=== PATIENT | female | born 2000 | race African-American/Black ===

== ENCOUNTER 2023-04-21 07:05 | Emergency (ER) | payer BC, OTHER, SELFPAY ==
[2023-04-21 07:06] VITALS: BP 123/83; PULSE 85; RESP 16; TEMP 35.8; O2SAT 100
--- NOTE | 2023-04-21 07:15 | RAD_ITS ---
INDICATION: DISLOCATION. Patient felt a pop when swimming, pain. EXAMINATION/TECHNIQUE: X-RAY - LEFT XR Shoulder Min 2 Views: AP and scapular Y views COMPARISON: None. FINDINGS: SOFT TISSUES: No significant soft tissue swelling. BONES/JOINTS: No acute fracture or subluxation. Normal alignment. Preservation of the joint space(s). No suspicious osseous lesion observed. RAD/Shoulder min 2 Views IMPRESSION: Negative left shoulder Electronically Signed: Suhas Mckeon MD at 7:43 EST ,
[2023-04-21] MEDS: fentaNYL 100 MCG/2 ML Ampul 50 MCG IV (07:33)
--- NOTE | 2023-04-21 07:43 | EX.ED.UPPERE ---
HPI History of Present Illness Chief Complaint: Upper Extremity Injury Narrative Narrative: Patient is a 23-year-old female with history of prior left shoulder dislocation presenting with sudden onset of left shoulder pain. Patient was at swim practice and was swimming the [employer] stroke when she accidentally collided with another swimmer. She had immediate left shoulder pain. Concern for dislocation. Has dislocated the past but is spontaneously reduced before. Is having pain in her shoulder. No associated numbness or tingling. No other complaints or concerns at this time. No other injuries reported. PFSH PFSH Allergy/AdvReac Type Severity Reaction Status Date / Time No Known Allergies Allergy Verified 04/21/23 07:11 Social History Smoking Status: Never smoker ROS ROS ED Constitutional Constitutional ED: Denies chills or fever(s) Cardiovascular Cardiovascular: Denies chest pain Respiratory/Chest Respiratory/Chest: Denies cough Gastrointestinal Gastrointestinal: Denies nausea or vomiting Musculoskeletal Musculoskeletal: Reports other Details: left shoulder pain Neurologic Neurologic: Denies paresthesias or weakness Hematologic/Lymphatic Hematologic/Lymphatic: Denies easy bleeding EXAM Physical Exam Const Vital Signs: 04/21/23 07:06 Temperature 96.4 F L Temperature Source Temporal Pulse Rate 85 Respiratory Rate 16 Blood Pressure 123/83 H Blood Pressure Mean 96 Pulse Ox 100 Oxygen Delivery Method Room Air Positive well nourished and well developed General Appearance ED: well developed and NAD HEENT Reports moist mucous membranes Neck full ROM Chest Wall inspection of chest normal and palpation of chest normal Resp normal respiratory effort and clear to auscultation bilaterally Back/Spine Cervical Spine: Negative for cervical spine tenderness Thoracic Spine / Upper Back: Negative for thoracic spinal tenderness Extremity Extremity Narrative: Decreased range of motion of the left shoulder secondary to pain. Tenderness to the anterior and posterior aspect of the left shoulder. No obvious deformity or deep sulcus consistent with a dislocation. No tenderness palpation over the clavicle or the AC joint. No tense palpation of the humerus, elbow or distal left upper extremity. Normal movements of the fingers with intrinsic and extrinsic movements. Neuro oriented x3, no focal motor deficits and no sensory deficits noted Sensorium / Orientation: alert Psych mental status grossly normal Skin Lesions: no lesions Rashes: no rashes MDM MDM MDM Narrative Medical decision making narrative: Patient evaluated for sudden onset of left shoulder pain. Differential includes shoulder dislocation, subluxation, dislocation that spontaneously reduced as well as rotator cuff injury. Lower suspicion for fracture given mechanism of injury and young age. Patient given dose of fentanyl obtain an x-ray for further evaluation. X-ray reviewed by myself is not consistent with a dislocation. Radiology agrees and is read as no acute process. On repeat evaluation patient is feeling better. Does have active range of motion of the shoulder. We placed in a sling. Counseled that she should wear the sling and avoid swimming until cleared by Ortho. Will give her referral to Ortho on-call. Is given dose of Toradol prior to discharge. Patient does not voice any concern for . Given return precautions. Discharged home in stable condition. Radiography Diagnostic Testing: Diagnostic Data Shoulder X-Ray 04/21/23 07:15 IMPRESSION: Negative left shoulder Electronically Signed: Suhas Mckeon MD at 7:43 EST , Discharge Plan Triage Chief Complaint: Upper Extremity Injury ED Provider: Dahlia Toribio Dx/Rx/DC Orders Clinical Impression: Unspecified injury of left shoulder and upper arm, initial encounter Instructions: ED Dislocation: Shoulder (Reduced), ED Sling Primary Care Provider: Care Physician,Dee Primary Referrals: Andreas Friend MD [Med Staff - Active Staff] - As soon as possible NOT,DEFINED [Non-Staff] - Activity Restrictions/Additional Instructions: Please alternate ibuprofen and Tylenol for pain. Use ice to your shoulder. Please follow-up with orthopedics for clearance to return to swimming. I suspect you likely did dislocate your shoulder and it reduced spontaneously before coming in however I cannot definitively rule out any other type of rotator cuff injury. Disposition Disposition: Home, Self Care Capacity [facility] Well[facility] Coordinator Reflex Medical hold order details:: IF a medical hold is selected below, a suggested order for a MEDICAL HOLD will reflex upon signing the document. Next of kin: [place] law dictates a PRIORITY LIST for identifying legal decision-maker/legal next of kin in the following order (LNOK): 1st: The patient?s legal guardian, if any 2nd: The patient's spouse (if status is questionable, consult Risk Management) 3rd: The patient?s adult child(mirna) (majority, if multiple children) 4th: The patient?s parents 5th: The patient?s adult siblings (majority, if multiple children siblings)
[2023-04-21] MEDS: Ketorolac 15 MG/ML Vial IV (08:11)
== END 2023-04-21 08:21 | disposition home or self-care (01) ==
PROVIDERS: Emergency Provider Emergency Medicine; Visit Provider Emergency Medicine
DX: S49.92XA Unspecified injury of left shoulder and upper arm, initial encounter (principal); W51.XXXA Accidental striking against or bumped into by another person, initial encounter; Y93.11 Activity, swimming; Y99.8 Other external cause status
CPT/HCPCS: 73030; 96374; 96375; 99283; A4216

== ENCOUNTER → 2023-05-10 | Outpatient (CLI) | payer BC, OTHER, SELFPAY ==
--- NOTE | 2023-05-10 10:15 | MRI_ITS ---
STUDY: MRI ARTHROGRAM OF THE LEFT SHOULDER REASON FOR EXAM: Female, 23 years old. Pain, dislocation. TECHNIQUE: 10 mL dilute Clariscan contrast was injected into the left glenohumeral joint. MRI was obtained in all 3 orthogonal planes. In addition, a fat-suppressed T1-weighted sequence was performed with the patient''s arm in the abduction external rotation (ABER) position. COMPARISON: Left shoulder radiographs dated 04/21/2023. FINDINGS: Normal supraspinatus tendon. Normal infraspinatus tendon. Normal subscapularis tendon. Normal teres minor tendon. Normal supraspinatus muscle. Normal infraspinatus muscle. Normal subscapularis muscle. Normal teres minor muscle. Normal glenohumeral articulation. There is a subtle Hill-Sachs deformity of the posterior superior humeral head, with underlying focal subcortical marrow edema (sagittal T2 series 4 image 14; coronal T2 series 5 image 5). Normal biceps labral complex. Normal intracapsular long biceps tendon. Normal labrum. Normal capsulo-ligamentous complex. Normal rotator interval. Normal acromioclavicular articulation. There is a Type II morphology (curved), with a neutral orientation. There is no subacromial-subdeltoid bursal fluid. Normal visualized coracohumeral and coracoacromial ligaments. Normal quadrilateral space. Normal axillary space. Normal deltoid muscle. Normal trapezius muscle. MRI/Upper Ext Jt Only W/Contrast IMPRESSION: Subtle Hill-Sachs deformity of the posterior superior humeral head, with underlying focal subcortical marrow. No focal rotator cuff tear or discrete labral tear. Electronically Signed: Amado Ortiz MD at 14:20 EST ,
[2023-05-10] MEDS: Lidocaine 2% (5ml sdv) 5 ML VIAL.MPF INFILT (10:33)
[2023-05-10] MEDS: Gadoterate Meglumine Diluted 10 ML, Iopamidol 5 ML, Lidocaine 1% (20 ml mdv) 5 ML, Epin... INTRAARTIC (10:38)
[2023-05-10] MEDS: Iopamidol 10 ML in Syringe 1 EACH 600 ML INTRAARTIC (10:38)
--- NOTE | 2023-05-10 11:00 | PRO.PCM_ITS ---
Procedure Report Date of Procedure: 05/10/23 Assessment & Plan Assessment/Plan (1) Recurrent dislocation, left shoulder: PLAN: PROCEDURE: Arthrogram-left shoulder ORDERING PROVIDER: Dr. Friend INDICATION: Female, 23 years old. Recurrent left shoulder dislocation. PROVIDER: Shannan Bansal APRN-PACKING AND WRAPPING SUPERVISOR CONSENT: The procedure as well as the benefits and possible complications including bleeding and infection were explained to the patient. Informed consent was obtained. TECHNIQUE: The patient was positioned supine. The overlying skin was prepped and draped in the usual sterile fashion. Following injection of local anesthetic with 2% lidocaine and under direct fluoroscopic guidance, a 22-gauge spinal needle was placed into the left glenohumeral space. 2 cc of Isovue 300 was injected for confirmation. Following this, 10 cc of arthrogram contrast (gadoterate, iopamidol, lidocaine, and epinephrine), compounded by pharmacy, was injected. All elements of maximal sterile barrier technique followed. Patient tolerated procedure well. IMPRESSION: Successful fluoroscopic guided left shoulder arthrogram. Procedures Radiology Radiology Xray Procedures: [id number] Arthrogram Shoulder
== END | disposition home or self-care (01) ==
LOC: RAD 10:04
PROVIDERS: Referring Provider Orthopaedic Surgery Orthopaedic Surgery of the Spine; Visit Provider Orthopaedic Surgery Orthopaedic Surgery of the Spine
DX: S43.025A Posterior dislocation of left humerus, initial encounter (principal); X58.XXXA Exposure to other specified factors, initial encounter
CPT/HCPCS: 23350; 73222; 77002; Q9967

== ENCOUNTER 2023-06-15 07:32 | Day surgery (SDC) | payer BC, OTHER, SELFPAY ==
[2023-06-15] VITALS (7 sets, daily range): BP systolic 107–137; BP diastolic 62–99; PULSE 54–90; RESP 14–16; TEMP 36.4–37.1; O2SAT 96–100; BMI 25.6
[2023-06-15] MEDS: Lactated Ringers 1,000 ML 15 ML IV (08:09)
[2023-06-15 08:27] LABS: Internal QC Validated? YES +Cl - CLEAR BKGD; Pregnancy, Urine Negative Negative; Record Kit Lot#,Urine Preg HCG0000718086
--- NOTE | 2023-06-15 08:54 | HP.PCM_ITS ---
HPI - General HPI Narrative JULIANNA HARDING, is a 23 F who presents for left shoulder arthroscopy, stabilization, possible remplissage. no changes to h and p. Risks alternatives benefits discussed as well as postoperative instructions and narcotic counseling. No changes to history and physical exam. Left shoulder marked consent up-to-date. Patient understands wishes to proceed plan for a preoperative block. They had no further questions. MR#: [id number] Acct: [id number] Name: JULIANNA HARDING Rep #: [id number] : 2000 Provider: Dr. Jorden Zabala MD Age/Sex: 23/F Location: [facility] [place] Status: Signed Intake Vital Signs 04/21/2414:06 Height 5 ft 5 in Weight: 152 lb BMI 25.2 Intake Visit Reasons: LEFT SHOULDER Accompanied by: Self Is patient in pain?: Yes Pain scale (1-10): 4 Allergies No Known Allergies Allergy (Verified 05/26/23 08:22) Medications NK 04/21/23 [History Confirmed 05/26/23] PFSH Social History Smoking Status: Never smoker HPI LEFT SHOULDER Details: This documentation accurately reflects the service provided and the decisions made by me, Dr. Jorden Zabala MD 05/26/23817. Part of today?s visit was documented by [ ], acting as scribe. JULIANNA HARDING is a 23 year old F here today for FU L shoulder recurrent instability. Did not swim in the competition, but still practicing and rehabbing. Ortho Exam General General: Yes no acute distress Neurologic: Yes alert and Yes oriented x3 Psychologic: Yes reasonable and appropriate Coding Level of Care Code Off vis,est,level 4 Diagnoses Recurrent dislocation, left shoulder M24.412 Assessment and Plan Assessment and Plan (1) Recurrent dislocation, left shoulder: Status: Acute Plan: JULIANNA HARDING is a 23 year old F here today for FU L shoulder recurrent in stability. Has a HS and labrum tear. Would like to proceed with surgery after discussing RAB pros and cons op vs non op. I see no bony defect patient has a shallow Hill-Sachs lesion so in my hands this would be left shoulder arthroscopy, stabilization, possible remplissage. Patient understands and wishes to proceed with surgery. I also spoke to the patient's mom on the phone today to explain the surgery. 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 Pros and cons risks and benefits were discussed with the patient including but not limited to infection, pain, stiffness, bleeding, damage to surrounding structures, neurovascular injury, recurrence or retear, failure or wear of hardware or fixation, instability, fracture, deep vein thrombosis and pulmonary embolism, anesthetic risks, , patient dissatisfaction, need for further surgery and other risks. Patient understood and wished to proceed with surgery, and signed the informed consent documentation. [facility] Medical History Non-smoker Home Medications NK 04/21/23 [History Last Taken Unknown] Allergy/AdvReac Type Severity Reaction Status Date / Time No Known Allergies Allergy Verified 06/07/23 13:27 Surgical History (Updated 06/07/23 @ 13:32 by Eri John) History of wisdom tooth extraction Social History Smoking Status: Never smoker Vital Signs Vital Signs Vital Signs: 06/15/23 07:59 06/15/23 07:59 Temperature 98.2 F Temperature Source Temporal Pulse Rate 77 Respiratory Rate 16 Respiratory Pattern Normal Blood Pressure 117/86 H Blood Pressure Mean 96 Blood Pressure Source Monitor Blood Pressure Position Sitting Blood Pressure Location Right Arm Pulse Ox 100 Oxygen Delivery Method Room Air Weight Weight: 154 lb Body Mass Index (BMI) 25.6 Results Lab / Micro Data Labs: Laboratory Results - last 24 hr 06/15/23 07:56: Urine Test Negative
[2023-06-15] MEDS: Cefazolin 2 GM in 0.9% Normal Saline (100mL Bag) 100 ML IV (09:12)
[2023-06-15] MEDS: Epinephrine (1 mg/ml) 1 MG/ML VIAL (09:45)
--- NOTE | 2023-06-15 11:02 | PCM.OPRPT ---
Problems Associated Problem List Diagnoses (1) Recurrent dislocation, left shoulder: Report of Operation Date of Procedure: 06/15/23 Pre-Operative Diagnosis: Left shoulder instability anterior labrum tear and Hill-Sachs lesion Post-Operative Diagnosis: Same Surgery/Procedure Performed:: Left shoulder arthroscopy, stabilization repair of the anterior labrum Surgeon: Jorden Zabala Type of Anesthesia: Block,Regional and General Anesthesiologist: Rober Link Estimated Blood Loss (mL): 25 Description of Procedure: Patient brought the operating room theater. Administered general anesthetic. Placed left side up lateral decubitus beanbag positioner. All bony prominences padded. Axillary roll used. SCDs on the leg. Upper extremity prepped and draped in usual sterile fashion with chlorhexidine-based prep solution allowing over 3 minutes drying time prior to draping. 2 g Ancef administered prior to start of procedure. 10 pounds of inline traction with the arm in 35 degrees of abduction was used. Preoperative timeout performed confirm the site patient and surgery. Began by inserting the arthroscope into the intra-articular portion of the shoulder through a standard posterior arthroscopy portal. Established cannulas to through the rotator interval 7 x 7 mm cannulas and 1 posteriorly. Examined full intra-articular extent of the shoulder. No loose body undersurface the rotator cuff was normal normal subscapularis normal rotator interval. Biceps attachment was stable solid. Cartilage on the glenoid and humeral head appeared normal. There was a tear extending from the 2:00 down to the 6:00 positions. The Hill-Sachs is very small and shallow approximately 1 cm and very shallow. This was not engaging. I elevated the labrum in the area of the tear. I used a lauren and shaving instrument to create a bleeding bed for healing at the tear site. I inserted 1 1.8 mm Arthrex fiber tack knotless anchor at the 7 o'clock position for a ripstop configuration. I then repaired the labrum sequentially creating an inferior to superior and anterior to posterior shift of the labrum and capsule tissue putting anchors at the 530, 5, 430, and mid glenoid 3 oclock position. Used again 1.8mm arthrex fiber laure knotless all suture anchors. Simple suture configuration while shifting the tissue. Repair was probed and found to be stable and solid. I decided against remplissage as this was a not engaging very small and shallow Hill-Sachs lesion. Arthroscopy pictures taken and saved onto the system throughout. Case terminated arthroscope withdrawn. Wound cleaned with wet dry dressing followed by closure of the portal 3-0 Monocryl suture skin cleaned with wet dry dressing followed by patient Steri-Strips Adaptic 4 x 4 gauze ABD dressing cloth tape and abduction pillow sling for the upper extremity. Patient will come from a general anesthetic transferred off the operating table taken postanesthetic care unit in stable condition. All sponge needle instrument counts report no complications. cpt 07054 Complications none Admit VTE Documentation VTE Present on Admission: No VTE Mechan Device Prophylaxis: SCD's VTE Pharm Prophylaxis ordered?: No Reason prophylaxis not ordered:: Treatment Not Indicated Procedures Musculoskeletal [id number]-29xxx: Other Procedure See Report
--- NOTE | 2023-06-15 11:11 | DCINST_ITS ---
Discharge Instructions Diet Discharge Diet: No restrictions Activity Lifting Restrictions: pendulums 4x a day, ok for hand wrist elbow ROM. Dressing / Incision Call your doctor if your incision/area has: Continuous Slow Oozing, Sudden Increased Bleeding, Increased Pain/ Swelling, Increased Redness, Foul Smelling Discharge and Swelling at the incision site Remove Dressing in: 2 days Additional Dressing/Incision Instructions:: keep incisions covered and dry 2 weeks Follow Up Care Please Follow Up With: Jorden Zabala MD When: 2 weeks Test Results: Test results from this visit will be discussed in further detail at your follow- up appointment, if applicable. Discharge Plan Admission Attending Provider: Jorden Zabala Primary Care Provider: Care Physician,No Primary Instructions Patient Instructions: After Shoulder Arthroscopy Discharge Orders/Prescriptions Prescriptions: New oxycodone-acetaminophen [Endocet] 5-325 mg tablet 1 tab PO Q4H MDD 6 PRN (Reason: pain) 5 Days Qty: 20 0RF Referrals / Follow Up: Jorden Zabala MD [Med Staff - Active Staff] - Care Physician,No Primary [Primary Care Provider] - Disposition Disposition (needs filled in before D/C Order can be placed): Home, Self Care
== END 2023-06-15 12:40 | disposition home or self-care (01) ==
LOC: SDC 07:34 → AC 07:37
PROVIDERS: Anesthesiology; Referring Provider Orthopaedic Surgery Sports Medicine; Visit Provider Orthopaedic Surgery Sports Medicine
PROC: (CPT 29805; principal; 2023-06-15 09:15)
DX: M24.412 Recurrent dislocation, left shoulder (principal); M25.312 Other instability, left shoulder; S46.812A Strain of other muscles, fascia and tendons at shoulder and upper arm level, left arm, initial encounter; X58.XXXA Exposure to other specified factors, initial encounter
CPT/HCPCS: 29807; 29806; 64415; 81025; J7120; J2405